=== PATIENT | male | born 1945 | race Caucasian/White ===

== ENCOUNTER 2019-12-18 11:04 | Emergency (ER) | payer MEDICARE, BC ==
[~2019-12-18] VITALS: Ht 167.6 cm; Wt 68.2 kg
[~2019-12-18 11:04] MED LIST: HYDR-4353 PO
[2019-12-18] MEDS ORDERED: bacitracin 15gm ointment TP ONE (11:20)
[2019-12-18 12:33] VITALS: BP 142/88
== END 2019-12-18 12:43 | disposition home or self-care (01) ==
LOC: ER 11:05
DX: S60.511A Abrasion of right hand, initial encounter (principal); S00.81XA Abrasion of other part of head, initial encounter; S22.31XA Fracture of one rib, right side, initial encounter for closed fracture; R51 Headache; W11.XXXA Fall on and from ladder, initial encounter; W22.8XXA Striking against or struck by other objects, initial encounter; Y92.89 Other specified places as the place of occurrence of the external cause; Y99.8 Other external cause status; Z72.89 Other problems related to lifestyle; Z79.899 Other long term (current) drug therapy; J32.9 Chronic sinusitis, unspecified
CPT/HCPCS: 70450; 72125; 99285

== ENCOUNTER 2021-09-23 08:58 | Inpatient (IN) | payer MEDICARE, BC ==
[2021-09-15 11:53] LABS: BASOPHILS # (AUTO) 0.1 X10'3 (0-0.2); BASOPHILS % (AUTO) 0.8 % (0-1); EOSINOPHILS # (AUTO) 0.3 X10'3 (0-0.9); EOSINOPHILS % (AUTO) 3.6 % (0-6); LYMPHOCYTES % (AUTO) 23.1 % (21-51); MEAN CORPUSCULAR HEMOGLOBIN 28.5 PG (27.0-31.0); MEAN CORPUSCULAR HGB CONC 32.8 g/dL (33.0-36.5); MEAN CORPUSCULAR VOLUME 86.9 FL (78-98); MEAN PLATELET VOLUME 9.1 FL (7.4-10.4); MONOCYTES # (AUTO) 0.7 X10'3 (0-0.9); MONOCYTES % (AUTO) 7.9 % (2-12); NEUTROPHILS # (AUTO) 5.6 X10'3 (1.8-7.7); NEUTROPHILS % (AUTO) 64.6 % (42-75); PRE OP HEMATOCRIT 44.3 % (42.0-52.0); PRE OP HEMOGLOBIN 14.5 g/dL (14.0-17.9); PRE OP PLATELET COUNT 186 X10'3 (140-440); RED BLOOD COUNT 5.09 X10'6 (4.70-6.10); RED CELL DISTRIBUTION WIDTH 14.5 % (11.5-14.5)
[2021-09-15 12:06] LABS: ALBUMIN 3.5 G/DL (3.4-5.0); BLOOD UREA NITROGEN 21 MG/DL (7-18); BUN/CREATININE RATIO 19.3 (5.4-32.0); CALCIUM 9.1 MG/DL (8.5-10.1); CHLORIDE 106 MMOL/L (99-107); CREATININE 1.09 MG/DL (0.60-1.10); PRE OP ANION GAP 9 (8-16); PRE OP BILIRUB, TOTAL 0.4 MG/DL (0.0-1.0); PRE OP GLUCOSE 92 MG/DL (70-104); PRE OP POTASSIUM 4.2 MMOL/L (3.4-5.1); PRE OP SODIUM 141 MMOL/L (135-145); TOTAL CARBON DIOXIDE 26.1 MMOL/L (24-32); eGFR 65 ML/MIN
[2021-09-15 12:07] LABS: ALKALINE PHOSPHATASE 99 IU/L (46-116); PRE OP ALT 22 U/L (30-65); PRE OP AST 31 U/L (10-37)
[2021-09-23] VITALS (23 sets, daily range): BP systolic 98–144; BP diastolic 51–75
[~2021-09-23] VITALS: Ht 167.6 cm; Wt 68.0 kg
[2021-09-23] MEDS: gabapentin 300mg capsule PO SCH ×3 (08:00→22:33)
[2021-09-23] MEDS: ascorbic acid 500mg tablet PO SCH ×2 (08:00→22:33)
[2021-09-23] MEDS: multivitamins, therapeutics tablet PO SCH (08:00)
[~2021-09-23 08:58] MED LIST changes: -HYDR-4353 PO; +HYDROmorphone 1 mg/ml syringe IV PRN; +HYDROmorphone inj. 0.5 MG/0.5 ML DISP.SYRIN IV PRN; +NO HOME MEDS; +acetaminophen 325mg tablet PO ONE; +acetaminophen 325mg tablet PO PRN; +bisacodyl 10mg suppository rectal RC PRN; +ceFAZolin inj. 2,000 MG in dextrose 5%-water 100 ML IV ONE; +celeCOXIB 100mg capsule PO ONE; +diphenhydrAMINE 25mg capsule PO PRN; +famotidine 20mg tablet PO ONE; +gabapentin 300mg capsule PO ONE; +magnesium hydroxide 30ml (MOM) UD suspension PO PRN; +metoclopramide 5 mg/ml inj IV ONE; +naloxone 0.4 mg/ml inj IV PRN; +ondansetron/PF 4mg/2ml inj IV PRN; +oxyCODONE SR 10mg (sust. release) tab -2 tabs (20mg) PO ONE; +oxyCODONE/APAP 10/325mg tablet PO PRN; +tranexamic acid inj. 1,000 MG in normal saline 100ml IV soln 100 ML IV ONE; +tranexamic acid inj. 1,000 MG in normal saline 100ml IV soln 90 ML IV ONE; +vancomycin/NS 1 GM in NS 250 ML IV ONE
[2021-09-23] MEDS: ringers solution, lacted 1,000 ML IV SCH ×2 (10:35→17:15)
--- NOTE | 2021-09-23 10:46 | NUR ---
MUPROCIN NOT GIVEN DR OSUNA OFFICE DID NOT ORDER IT. [facility]SM INTACT, PULSES MARKED, PATIENT TOOK 5 SHOWERS WITH HEBICLENS AND WATCHED DVD JOINT CARE
[2021-09-23] MEDS ORDERED: vancomycin 1,000mg inj ONE (11:43)
[2021-09-23] MEDS ORDERED: cloNIDine hcl/PF 100mcg/ml inj ONE (11:43)
[2021-09-23] MEDS ORDERED: ROPIVAcaine 0.5% (5mg/ml) 30ml vial ONE ×2 (11:43→13:15)
[2021-09-23] MEDS ORDERED: epiNEPHrine 1 mg/ml inj ONE (11:43)
[2021-09-23] MEDS ORDERED: ketorolac trometh. 30mg/ml inj. ONE (11:44)
[2021-09-23] MEDS ORDERED: MIDAZolam 1 MG/ML 5ML VIAL ONE (12:31)
[2021-09-23] MEDS ORDERED: ondansetron/PF 4mg/2ml inj IV PRN (12:55)
[2021-09-23] MEDS ORDERED: hydrALAZINE 20mg/ml inj. IV PRN (12:55)
[2021-09-23] MEDS ORDERED: morphine 4 MG/ML inj SYRINge IV PRN (12:55)
[2021-09-23] MEDS ORDERED: ringers solution, lacted 1,000 ML IV SCH (12:55)
[2021-09-23] MEDS ORDERED: morphine 2 MG/ML inj. syringe IV PRN (12:55)
[2021-09-23] MEDS ORDERED: fentaNYL/PF 50MCG/1 ML 2ML syringe IV PRN ×2 (12:55)
[2021-09-23] MEDS ORDERED: ROPIVAcaine 0.2%/PF PUMP/bolus 545 ML ADDCANAL SCH (12:55)
[2021-09-23] MEDS ORDERED: ROPIVAcaine 0.2% (10 MG/5 ML) BOLUS INJECTION ADDCANAL PRN (12:55)
[2021-09-23] MEDS ORDERED: labetalol 20mg/4ml (5mg/ml) syringe IV PRN (12:55)
--- NOTE | 2021-09-23 14:04 | NUR ---
Received from OR via BED IN STABLE CONDITION , accompanied by Anesthesiologist and EHS MANAGER report given by EHS MANAGER AND Anesthesiolgist. DERMATOME LEVEL L2. Addendum: 09/23/21 at 1552 by Carin Torre RN Amended: Links added.
[2021-09-23] MEDS: potassium cl 20mEq in 1/2 NS 1,000 ML IV SCH ×2 (14:50→17:28)
--- NOTE | 2021-09-23 16:11 | NUR ---
Patient in room PAS IN 901. I have received report from Carin PRASAD and had the opportunity to ask questions and assume patient care.
--- NOTE | 2021-09-23 16:14 | NUR ---
PATIENT DISCHARGED FROM PACU IN STABLE CONDITION AFTER REPORT GIVEN TO RN TAKING OVER PATIENTS CARE. PATIENT TRANSFERRED TO ROOM 402 VIA BED WITH RN. Addendum: 09/23/21 at 1623 by Carin Torre RN Amended: Links added.
[2021-09-23] MEDS: ceFAZolin/D5W- 1GM premix 50 ML IV SCH (17:28)
--- NOTE | 2021-09-23 18:22 | NUR ---
Problems reprioritized. Patient report given, questions answered & plan of care reviewed with Lenka PRASAD.
--- NOTE | 2021-09-23 18:45 | NUR ---
Patient in room ORTHO 4021. I have received report from GUILHERME PRASAD and had the opportunity to ask questions and assume patient care.
[2021-09-23] MEDS ORDERED: vancomycin/NS 1 GM ADD-VANTAGE 250 ML IV SCH (20:00)
[2021-09-23] MEDS ORDERED: sennosides 8.6mg tablet PO SCH (21:00)
[2021-09-24] MEDS: ceFAZolin/D5W- 1GM premix 50 ML IV SCH (00:42)
[2021-09-24 02:00] VITALS: BP 118/59
[2021-09-24] MEDS: potassium cl 20mEq in 1/2 NS 1,000 ML IV SCH (04:19)
[2021-09-24 05:00] VITALS: BP 137/66
[2021-09-24 06:25] LABS: BASOPHILS % (AUTO) 0.4 % (0-1); EOSINOPHILS # (AUTO) 0.1 X10'3 (0-0.9); EOSINOPHILS % (AUTO) 0.7 % (0-6); HEMATOCRIT 39.8 % (42.0-52.0); HEMOGLOBIN 13.3 g/dl (14.0-17.9); LYMPHOCYTES # (AUTO) 1.4 X10'3 (1.1-4.8); LYMPHOCYTES % (AUTO) 14.1 % (21-51); MEAN CORPUSCULAR HEMOGLOBIN 29.4 PG (27.0-31.0); MEAN CORPUSCULAR HGB CONC 33.3 g/dL (33.0-36.5); MEAN CORPUSCULAR VOLUME 88.3 FL (78-98); MEAN PLATELET VOLUME 9.3 FL (7.4-10.4); MONOCYTES % (AUTO) 10.1 % (2-12); NEUTROPHILS # (AUTO) 7.4 X10'3 (1.8-7.7); NEUTROPHILS % (AUTO) 74.7 % (42-75); PLATELET COUNT 167 X10'3 (140-440); RED BLOOD COUNT 4.51 X10'6 (4.70-6.10); RED CELL DISTRIBUTION WIDTH 14.3 % (11.5-14.5); WHITE BLOOD COUNT 9.9 X10'3 (4.5-11.0)
--- NOTE | 2021-09-24 06:29 | NUR ---
Problems reprioritized. Patient report given, questions answered & plan of care reviewed with Aurora PRASAD.
--- NOTE | 2021-09-24 06:30 | NUR ---
Patient in room ORTHO 4021. I have received report from OSMAR Og and had the opportunity to ask questions and assume patient care.
[2021-09-24 06:48] LABS: ANION GAP 4 (8-16); CHLORIDE 108 MMOL/L (99-107); POTASSIUM 4.7 MMOL/L (3.5-5.1); SODIUM 139 MMOL/L (135-145); TOTAL CARBON DIOXIDE 27.4 MMOL/L (24-32)
[2021-09-24] MEDS: gabapentin 300mg capsule PO SCH (07:39)
[2021-09-24] MEDS: ascorbic acid 500mg tablet PO SCH (07:39)
[2021-09-24] MEDS: multivitamins, therapeutics tablet PO SCH (07:39)
--- NOTE | 2021-09-24 09:13 | NUR ---
Pt discharged to home at 0840, with all belongings in personal vehicle, accompanied by . Discharge instructions and medications reviewed. New prescriptions filled by pt PACKAGE MAKER. Education provided regarding OnQ pain pump, as well as RADHA dressing to right knee. Instructions on how and when to remove OnQ and RADHA dressing provided and reviewed with pt. Pt verbalized return demonstration. Pt to follow up with Dr Kidd as scheduled. Pt states understanding and willingness to comply with all discharge instructions. IV DC'd, cannula intact. Pt escorted to front lobby via wheelchair by PCT.
[2021-09-24] MEDS ORDERED: celeCOXIB 100mg capsule PO SCH (20:00)
== END 2021-09-24 08:40 | disposition home or self-care (01) | DRG 470 ==
LOC: PAS 08:58 → PAS IN 08:59 → ORTHO 4S 16:34
PROVIDERS: ADMIT Orthopaedic Surgery; ATTEND Orthopaedic Surgery
PROC: 3E0T3BZ Introduction of Anesthetic Agent into Peripheral Nerves and Plexi, Percutaneous Approach (ICD-10-PCS; 2021-09-23)
PROC: 3E0T33Z Introduction of Anti-inflammatory into Peripheral Nerves and Plexi, Percutaneous Approach (ICD-10-PCS; 2021-09-23)
PROC: 0SRC069 Replacement of Right Knee Joint with Oxidized Zirconium on Polyethylene Synthetic Substitute, Cemented, Open Approach (ICD-10-PCS; principal; 2021-09-23 12:08)
DX: M17.11 Unilateral primary osteoarthritis, right knee (principal); Z87.891 Personal history of nicotine dependence
CPT/HCPCS: 36415; 71046; 73560; 80051; 80053; 82948; 85025; 86885; 86900; 86901; 87081; 93306; 97110; 97161; 97530; A4215; A7000; C1713; C1776; G0378; J0171; J0690; J0735; J1170; J1885; J2250; J2765; J2795; J3370; J3480; J3490; J7060; J7120; U0003; U0005